=== PATIENT | female | born 1950 | race Caucasian/White ===

== ENCOUNTER → 2017-02-14 | Outpatient (CLI) | payer MEDICARE, BC ==
[~2017-02-14] MED LIST: ADVAIR 250-501 EAC1 IH; ADVAIR INH; ALBUTEROL MININEB NEB; ALBUTEROL17 GM INH; ALLEGRA PO; AMBIEN PO; AMBIEN10 MG PO; ASPIRIN PO; DIAZEPAM PO; FLUOXETINE HCL40 M1 PO; HYDROCODONE/APA1 T16 PO; KEFLEX PO; LIPITOR PO; METFORMIN HCL500 M2 PO; PROZAC PO; SINGULAIR PO; TASPRIN325 MG PO; VICODIN 5/500 T1 TAB PO; [UNRECOGNIZED DRUG - REMARK]
--- NOTE | ~2017-02-14 | MR17 ---
[facility] A Service of [facility] RADIOLOGY TEXT RESULTS PATIENT: MAYURI WASHINGTON LOCATION: [facility] : 49 UNIT #: [id number] AGE: [address]: Carl Kirkland MD SEX: F ORDER DR: [id number] [facility] [address] [place], [place] [address] [id number] O MR#: [id number] Acc #: [id number] NAME: MAYURI WASHINGTON : 1950 SEX: F STUDY DATE/TIME: 02/14/2017 15:37 UNIT: [facility] ROOM: STUDY DESCRIPTION: MR Brain WWo Contrast Attending Physician: Ward Kirkland M.D. Referring Physician: Ward Kirkland M.D. Ordering Physician: Ward Kirkland M.D. Primary Care Physician: Casi Atkinson A.P.R.N. MRI CENTER REPORT This report is preliminary unless electronic signature is present. EXAM Brain MR with and without contrast 02/14/[address] 11/23/2014 PROCEDURE Routine brain MR with and without contrast. 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 FINDINGS There is no MR evidence of acute ischemia or other restricted diffusion. There are areas of encephalomalacia particularly in the right posterior frontal cortex, but there is no hemorrhage or hydrocephalus or extraaxial fluid collection. There are extensive chronic white matter changes but these are overall fairly symmetric. Normal flow voids are seen in the cerebral vessels. Postcontrast images show no evidence of intracranial mass or abnormal enhancement. There is an area of abnormal bone marrow signal in the left frontal calvaria, at least 3.5 cm in maximal dimension. There is no definite imaging correlate on the prior head CT and it is also clearly new since the prior study. No other areas of abnormal bone marrow signal are seen. There is paranasal sinus mucosal disease, moderately extensive but the extracranial soft tissues are otherwise normal. IMPRESSION [facility] A Service of [facility] RADIOLOGY TEXT RESULTS PATIENT: MAYURI WASHINGTON [facility] UNIT #: [id number] AGE: [address]: Carl Kirkland MD SEX: F ORDER DR: There are moderately extensive chronic ischemic changes including an area of cortical encephalomalacia in the right posterior frontal region and moderate fairly symmetric nonspecific white matter changes likely related to chronic small vessel disease but there is also a tiny area of right parietal cortical encephalomalacia. There is volume loss but no hydrocephalus and no acute intracranial abnormality is seen. In addition to moderate diffuse sinus mucosal disease, there is an area of abnormal bone marrow signal in the left frontal calvaria at least about 3.5 cm in maximal dimension. This is seen on both T1 and T2 images and show contrast enhancement. Differential diagnostic possibilities include in addition to metastatic disease or myeloma, early osteoporosis circumscripta. There is no abnormality in the calvaria on the head CT of November 2014. An unenhanced head CT might be the next most appropriate step in evaluation. A bone scan may eventually be required for further evaluation. Dictated by... Solitario Mayes M.D. THIS IS AN ELECTRONICALLY VERIFIED REPORT Solitario Mayes M.D. at 02/16/2017 3:59 PM LUCIO/justin TD: 02/15/2017 14:14 JOB #: [id number] MRI CENTER REPORT Page 1 of 1 COPY
[2017-02-14 15:56] LABS: POC - CREATININE 1.08 mg/dL (0.44-1.03)
== END | disposition home or self-care (01) ==
LOC: CMRI 14:46
PROVIDERS: Orthopaedic Surgery
DX: R26.9 Unspecified abnormalities of gait and mobility (principal); I67.82 Cerebral ischemia; J34.89 Other specified disorders of nose and nasal sinuses
CPT/HCPCS: 70553; 82565; A9577